=== PATIENT | male | born 1980 | race Caucasian/White ===

== ENCOUNTER → 2019-10-06 08:13 | Outpatient (BNVA) | payer SELFPAY | PROVIDERS: Family Provider Nurse Practitioner; PCP Nurse Practitioner; Visit Provider Nurse Practitioner | DX: R50.9 Fever, unspecified (principal) | CPT/HCPCS: 81003; 85025; 87400; 87635 ==

== ENCOUNTER → 2020-02-13 10:43 | Outpatient (BNVA) | payer SELFPAY | PROVIDERS: Family Provider Nurse Practitioner; PCP Nurse Practitioner; Visit Provider Nurse Practitioner | DX: Z11.59 Encounter for screening for other viral diseases (principal); R05 Cough | CPT/HCPCS: 87635 ==

== ENCOUNTER → 2020-08-10 10:04 | Outpatient (BNVA) | payer BC, SELFPAY | PROVIDERS: Family Provider Nurse Practitioner; PCP Nurse Practitioner; Visit Provider Nurse Practitioner | DX: Z00.00 Encounter for general adult medical examination without abnormal findings (principal) | CPT/HCPCS: 80053; 80061; 81000; 85025 ==

== ENCOUNTER → 2021-02-25 08:12 | Outpatient (BNVA) | payer BC, SELFPAY | PROVIDERS: Family Provider Nurse Practitioner; PCP Nurse Practitioner; Visit Provider Nurse Practitioner Family | DX: Z20.822 Contact with and (suspected) exposure to COVID-19 (principal) | CPT/HCPCS: 87635 ==

== ENCOUNTER → 2021-09-10 08:52 | Outpatient (BNVA) | payer BC, SELFPAY | PROVIDERS: Family Provider Nurse Practitioner; PCP Nurse Practitioner; Visit Provider Nurse Practitioner Family | DX: R30.0 Dysuria (principal); N39.0 Urinary tract infection, site not specified | CPT/HCPCS: 81000; 87086; 87491; 87591 ==

== ENCOUNTER 2022-04-08 12:32 | Emergency (ER) | payer BC, SELFPAY ==
[2022-04-08] VITALS (18 sets, daily range): BP systolic 123–196; BP diastolic 70–117; PULSE 70–96; RESP 13–24; TEMP 36.6; O2SAT 96
--- NOTE | 2022-04-08 12:53 | ECG_ITS ---
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 Measurements Intervals [place] Rate: 84 P: 37 MN: 147 QRS: -11 QRSD: 93 T: 62 QT: 354 QTc: 420 Interpretive Statements SINUS RHYTHM WITH SINUS ARRHYTHMIA POSSIBLE LEFT ATRIAL ENLARGEMENT [-0.1mV P-WAVE IN V1/V2] POSSIBLE LEFT VENTRICULAR HYPERTROPHY [VOLTAGE CRITERIA PLUS LAE OR QRS WIDENING] INTERPRETATION BASED ON A DEFAULT AGE OF 40 YEARS Compared to ECG 10/07/2015 11:03:01 No significant changes Electronically Signed On 04-08-2022 21:00:52 TECHNICAL PUBLICATIONS WRITER by Cherie Ellison M.D. [email or web address]
--- NOTE | 2022-04-08 13:17 | ECG_ITS ---
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 Measurements Intervals [place] Rate: 67 P: 39 HI: 149 QRS: -11 QRSD: 97 T: 55 QT: 389 QTc: 412 Interpretive Statements SINUS RHYTHM WITH SINUS ARRHYTHMIA POSSIBLE LEFT ATRIAL ENLARGEMENT [-0.1mV P-WAVE IN V1/V2] POSSIBLE LEFT VENTRICULAR HYPERTROPHY [VOLTAGE CRITERIA PLUS LAE OR QRS WIDENING] Compared to ECG 04/08/2022 12:53:33 No significant changes Electronically Signed On 04-08-2022 21:02:54 INSURANCE ANALYST by Cherie Ellison M.D. [id number]
--- NOTE | 2022-04-08 13:28 | ED_ITS ---
HPI - Chest Pain General: Chief Complaint: Chest Pain Stated Complaint: On new BP meds and doesn't feel right Time Seen by Provider: 04/08/22 12:34 Source: patient Mode of arrival: ambulatory History of Present Illness: 41 yo male presents to ER w complaints of generally not feeling well with elevated blood pressure. Recently they adjusted blood pressure medications he has been tired lightheaded and dizzy. He states he has had some numbness left arm at times no chest pain. No focal neurologic deficits at the time presentation. No difficulty speech or swallowing. MD complaint: chest pain Onset (ago): day(s) Timing of current episode: episodic Onset: during rest Pain location: substernal Pain radiation: none Severity: mild Relieving factors: nothing Exacerbating factors: nothing Associated symptoms: Deny abdominal pain, diaphoresis, dyspnea, fever(s), leg edema, nausea, palpitations, sense of impending doom, syncope or vomiting Treatment prior to arrival: none Review of Systems Const: Denies: fever(s), chills, fatigue, malaise or diaphoresis ENMT: Denies: throat pain, ear or mastoid pain, nasal discharge or nasal congestion Card: Denies: palpitations or syncope Resp: Denies: dyspnea, productive cough or non-productive cough GI: Denies: abdominal pain, nausea or vomiting : Denies: flank pain, difficulty urinating, dysuria, urinary frequency or urinary urgency Skin/Breast: Denies: rash or pruritus PFSH ED PFSH: Medical History Anxiety with depression Current smoker Headache due to old concussion Myalgia of auxiliary muscles, head and neck Surgical History No history of previous surgery Family History Father CAD (coronary artery disease) Nicotine dependence Mother Nicotine dependence Social History Smoking and tobacco status: current every day smoker Second hand smoke exposure: No Smoking risk assessment/counseling performed?: Yes Alcohol intake: unknown Desire information about alcohol rehabilitation?: No Counseling given: No Desire information about substance/drug rehabilitation?: No Counseling given: No Caregiver/support person: No Lives independently: Yes Household members: spouse Housing: House Marital status: Number of children: 4 Current occupational status: employed Current occupation: [employer] History of recent travel: No Current gender identity: Male Physical Exam Const: COMMON NORMALS: no acute distress GENERAL APPEARANCE: cooperative and comfortable ORIENTATION/CONSCIOUSNESS: Yes awake, Yes oriented to person, Yes oriented to place and Yes oriented to time HENMT: COMMON NORMALS: normocephalic, atraumatic and hearing grossly normal bilaterally HEAD & SCALP: normocephalic and atraumatic Resp: COMMON NORMALS: normal respiratory effort, No retractions, No use of accessory muscles and clear to auscultation bilaterally AUSCULTATION: clear to auscultation bilaterally Cardio: COMMON NORMALS: regular rate, regular rhythm and No murmurs present (Cardio) RATE: regular rate RHYTHM: regular rhythm GI: COMMON NORMALS: Soft to palpation and No hepatosplenomegaly present AUSCULTATION: Yes normoactive bowel sounds PALPATION: Yes Soft to palpation, No Tenderness to palpation present (GI), No Guarding due to palpation present (GI) and Yes No hepatosplenomegaly present Extremity: COMMON NORMALS: normal to inspection, capillary refill normal, no clubbing, cyanosis or edema, no calf tenderness and no pedal edema Neuro: SENSORIUM/ORIENTATION: Yes oriented to person, Yes oriented to place and Yes oriented to time OTHER: Cranial nerves II to XII grossly intact no focal deficits noted no lateralizing symptoms. Skin: COMMON NORMALS: no rashes or lesions noted GENERAL SKIN EXAM: no rashes or lesions noted Course Vital Signs: Vital signs: Vital Signs Temperature 97.8 F 04/08/22 12:48 Pulse Rate 78 04/08/22 16:45 Respiratory Rate 13 04/08/22 16:45 Blood Pressure 145/85 04/08/22 17:00 Pulse Oximetry 96 04/08/22 12:48 Oxygen Delivery Me thod 04/08/22 13:45 MDM - Chest Pain Medical Decision Making Blood pressure improved. EKG does not show any acute changes laboratory test reviewed troponin is negative delta. We will go ahead and discharge patient home Jolie add Toprol-XL and amlodipine daily patient vies to continue the valsartan. Recheck with his doctor within the next 7 to 10 days to reevaluate blood pressure. Medical Records I reviewed the patient's medical records. Lab Data I reviewed the patient's lab results. : 04/08/22 13:15 04/08/22 13:15 Laboratory Results WBC 17.7 10^3/uL (4.0-10.0) H 04/08/22 13:15 RBC 5.54 10^6/uL (4.1-5.3) H 04/08/22 13:15 Hgb 17.1 g/dL (11.7-16.6) H 04/08/22 13:15 Hct 52.4 % (42.0-52.0) H 04/08/22 13:15 MCV 94.6 fl (80-94) H 04/08/22 13:15 MCH 30.9 pg (28.0-34.0) 04/08/22 13:15 MCHC 32.6 g/dL (30.0-36.0) 04/08/22 13:15 RDW 13.3 % (12.1-15.1) 04/08/22 13:15 Plt Count 293 10^3/cmm (130-400) 04/08/22 13:15 MPV 10.7 fL (7.4-10.4) H 04/08/22 13:15 Neut % (Auto) 69.7 % 04/08/22 13:15 Lymph % (Auto) 17.9 % 04/08/22 13:15 [place] % (Auto) 9.5 % 04/08/22 13:15 Eos % (Auto) 1.7 % 04/08/22 13:15 Baso % (Auto) 0.6 % 04/08/22 13:15 Neut # (Auto) 12.31 10^3/uL (1.8-7.7) H 04/08/22 13:15 Lymph # (Auto) 3.2 10^3/uL (0.8-4.8) 04/08/22 13:15 [place] # (Auto) 1.7 10^3/uL (0.2-0.9) H 04/08/22 13:15 Eos # (Auto) 0.3 10^3/uL (0.0-0.8) 04/08/22 13:15 Baso # (Auto) 0.1 10^3/uL (0.0-0.1) 04/08/22 13:15 Nucleated RBC % (auto) 0 % 04/08/22 13:15 Nucleated RBCs # 0.0 /100WBC 04/08/22 13:15 Sodium 133 mmol/L (136-145) L 04/08/22 13:15 Potassium 4.1 mmol/L (3.5-5.1) 04/08/22 13:15 Chloride 101 mmol/L (98-107) 04/08/22 13:15 Carbon Dioxide 23 mmol/L (22-29) 04/08/22 13:15 Anion Gap 13.1 (5-19) 04/08/22 13:15 BUN 18 mg/dL (6-20) 04/08/22 13:15 Creatinine 0.9 mg/dL (0.7-1.2) 04/08/22 13:15 GFR Calculation 92.1 mL/min (90-130) 04/08/22 13:15 Glucose 92 mg/dL (65-115) 04/08/22 13:15 Calculated Osmolality 278 mOsm/kg (285-295) L 04/08/22 13:15 Calcium 9.4 mg/dL (8.5-10.5) 04/08/22 13:15 Troponin T Baseline 6 ng/L (0-15) 04/08/22 13:15 Troponin T 120 Minute 6.00 ng/L (0-15) 04/08/22 15:40 Discharge Plan Discharge Patient Disposition: Home Clinical Impression: Essential hypertension Condition: Stable Prescriptions: New amlodipine 5 mg tablet 5 mg PO DAILY Qty: 30 0RF Toprol XL 25 mg tablet extended release 24 hr 25 mg PO DAILY Qty: 30 0RF No Action tadalafil [Cialis] 20 mg tablet 20 mg PO DAILY PRN (Reason: sexual activity) Qty: 30 0RF Rx Instructions: 30min before sexual activity; do not use more than 1 dose per 24hrs GoodRx venlafaxine [Effexor XR] 37.5 mg capsule,extended release 24hr 37.5 mg PO DAILY Qty: 30 0RF valsartan [Diovan] 80 mg tablet 80 mg PO DAILY Qty: 30 0RF aspirin 81 mg Tablet,Chewable 81 mg PO DAILY Discharge Orders: Discharge ED (Routine); Ordered 04/08/22 Ordered By: Abram Webster Referrals: Angélica Carter, [employer] [Primary Care Provider] - Discharge Diet: Usual diet Discharge Activity: Increase activity as tolerated Patient Instructions: Opioid Safety, Pain Management Activity Restrictions/Additional Instructions: Follow-up with your doctor within the next week to reevaluate your blood pressure. Coding Level of Care Code ED Sliver Former for Chg Fwd Exam Detailed
[2022-04-08] MEDS: metoprolol tartrate 1 mg/1 mL SDV 5 mL 2.5 MG IVP (13:29)
[2022-04-08] MEDS: hyDRALAzine 20 mg/mL INJ 1 mL IVP (13:29)
[2022-04-08] MEDS: amlodipine 10 mg Tablet PO (13:29)
--- NOTE | 2022-04-08 13:33 | PC.NURSE ---
While on route to admin medication to patient, this nurse dropped a vial of metropolol on the ground which broke. This nurse then had to obtain a second vial.
[2022-04-08 13:39] LABS: Basophils # 0.1 10^3/uL (0.0-0.1); Basophils % 0.6 %; Eosinophils # 0.3 10^3/uL (0.0-0.8); Eosinophils % 1.7 %; Hematocrit 52.4 % (42.0-52.0); Hemoglobin 17.1 g/dL (11.7-16.6); Lymphocytes # 3.2 10^3/uL (0.8-4.8); Lymphocytes % 17.9 %; Mean Corpuscular HGB Conc 32.6 g/dL (30.0-36.0); Mean Corpuscular Hemoglobin 30.9 pg (28.0-34.0); Mean Corpuscular Volume 94.6 fl (80-94); Mean Platelet Volume 10.7 fL (7.4-10.4); Monocytes # 1.7 10^3/uL (0.2-0.9); Monocytes % 9.5 %; Neutrophils # 12.31 10^3/uL (1.8-7.7); Neutrophils % 69.7 %; Nucleated Red Blood Cells % 0 %; Platelet Count 293 10^3/cmm (130-400); Red Blood Count 5.54 10^6/uL (4.1-5.3); Red Cell Distribution Width 13.3 % (12.1-15.1); White Blood Count 17.7 10^3/uL (4.0-10.0)
[2022-04-08 13:47] LABS: Anion Gap 13.1 (5-19); Blood Urea Nitrogen 18 mg/dL (6-20); Calcium 9.4 mg/dL (8.5-10.5); Carbon Dioxide 23 mmol/L (22-29); Chloride 101 mmol/L (98-107); Glomerular Filtration Rate 92.1 mL/min (90-130); Glucose 92 mg/dL (65-115); Osmolality Calculated 278 mOsm/kg (285-295); Potassium 4.1 mmol/L (3.5-5.1); Sodium 133 mmol/L (136-145)
[2022-04-08 15:36] LABS: Troponin(5th) Baseline 6 ng/L (0-15)
[2022-04-08 17:26] LABS: Troponin 5 2HR Delta 0 ABS# (0-10)
== END 2022-04-08 17:04 | disposition home or self-care (01) ==
PROVIDERS: Emergency Provider Family Medicine; PCP Nurse Practitioner
DX: I10 Essential (primary) hypertension (principal); Z79.82 Long term (current) use of aspirin; F17.210 Nicotine dependence, cigarettes, uncomplicated
CPT/HCPCS: 80048; 84484; 85025; 93005; 96374; 96375; 99285; J0360; J3490

== ENCOUNTER → 2023-11-18 14:31 | Outpatient (BNVA) | payer BC, SELFPAY | PROVIDERS: PCP Nurse Practitioner; Visit Provider Nurse Practitioner | DX: Z12.5 Encounter for screening for malignant neoplasm of prostate (principal); Z13.6 Encounter for screening for cardiovascular disorders; F41.8 Other specified anxiety disorders | CPT/HCPCS: 80053; 80061; 82607; G0103 ==